=== PATIENT | male | born 1985 | race Two or more races ===

== ENCOUNTER 2021-12-17 19:16 | Emergency (ER) | payer OTHER ==
[2021-12-17 19:16] VITALS: BP 125/74
[2021-12-18] MEDS ORDERED: NEOMYCIN-BACITRACIN-POLYM 15GM TOP OINT TOP ONE (01:00)
[2021-12-18] MEDS ORDERED: AMOX875T3 PO (01:30)
[2021-12-18] MEDS ORDERED: MUPI2OIN9 EX (01:30)
[2021-12-18] MEDS ORDERED: CYCL-838 PO (01:30)
[2021-12-18] MEDS ORDERED: IBUP800T26 PO (01:30)
[2021-12-18] MEDS ORDERED: HYDROcodone-ACET 5/325MG TAB PO ONE (01:45)
[2021-12-18] MEDS ORDERED: ONDANSETRON ODT 4 MG TAB PO ONE (01:45)
== END 2021-12-18 02:05 | disposition home or self-care (01) ==
LOC: ER 19:16
DX: S02.2XXA Fracture of nasal bones, initial encounter for closed fracture (principal); S62.666A Nondisplaced fracture of distal phalanx of right little finger, initial encounter for closed fracture; S00.83XA Contusion of other part of head, initial encounter; V43.62XA Car passenger injured in collision with other type car in traffic accident, initial encounter; Y93.89 Activity, other specified; Y92.410 Unspecified street and highway as the place of occurrence of the external cause; Y99.8 Other external cause status
CPT/HCPCS: 70450; 70486; 71250; 72125; 73030; 73110; 73130; 74176; 99284; Q0162